=== PATIENT | female | born 1990 | race Hispanic/Latino ===

== ENCOUNTER 2020-04-27 19:22 | Emergency (ER) | payer OTHER ==
[2020-04-27] MEDS ORDERED: diphenhydrAMINE 12.5 MG/5 ML UDCUP ONE (21:23)
[2020-04-27] MEDS ORDERED: Ketorolac Tromethamine 30 MG/ML VIAL ONE (21:23)
[2020-04-27] MEDS ORDERED: Metoclopramide HCl 10 MG/2 ML VIAL ONE (21:23)
[2020-04-27] MEDS ORDERED: diphenhydrAMINE 50 MG/ML VIAL ONE (21:25)
[2020-04-27] MEDS ORDERED: Acetaminophen 500 MG TAB ONE (22:09)
== END 2020-04-28 01:46 | disposition home or self-care (01) ==
LOC: ERS 19:22
DX: R51.9 Headache, unspecified (principal); Z20.822 Contact with and (suspected) exposure to COVID-19
CPT/HCPCS: 96365; 96375; J1200; J1885; J2765; Q0163

== ENCOUNTER 2021-02-15 20:10 | Emergency (ER) | payer OTHER ==
[2021-02-15] MEDS ORDERED: Ketorolac Tromethamine 30 MG/ML VIAL ONE (20:52)
[2021-02-15] MEDS ORDERED: Morphine 4 MG/ML VIAL ONE (20:52)
== END 2021-02-15 21:46 | disposition home or self-care (01) ==
LOC: ERS 20:10
DX: K08.89 Other specified disorders of teeth and supporting structures (principal)
CPT/HCPCS: 96372; 99282; J1885; J2270

== ENCOUNTER 2021-02-16 16:07 | Emergency (ER) | payer OTHER ==
[2021-02-16] MEDS ORDERED: Lidocaine 1% w/Epinephrine 1:100K 20 ML VIAL ONE (16:20)
[2021-02-16] MEDS ORDERED: Bupivacaine 0.5% 10 ML VIAL ONE (16:21)
[2021-02-16] MEDS ORDERED: Lidocaine 1% PF 5 ML VIAL ONE (16:21)
[2021-02-16] MEDS ORDERED: Bupivacaine 0.25% 10 ML VIAL ONE (16:21)
== END 2021-02-16 17:00 | disposition home or self-care (01) ==
LOC: ERS 16:07
DX: K02.9 Dental caries, unspecified (principal); Z79.899 Other long term (current) drug therapy; K08.89 Other specified disorders of teeth and supporting structures
CPT/HCPCS: 96372; 99282; J1885; J2270; J3490; S0020

== ENCOUNTER 2021-04-13 13:55 | Emergency (ER) | payer OTHER ==
[2021-04-13] MEDS ORDERED: Bupivacaine 0.5% 10 ML VIAL ONE (15:34)
[2021-04-13] MEDS ORDERED: Lidocaine 1% PF 5 ML VIAL ONE (15:34)
== END 2021-04-13 16:20 | disposition home or self-care (01) ==
LOC: ERS 13:55
DX: K04.7 Periapical abscess without sinus (principal)
CPT/HCPCS: 99282; J3490